=== PATIENT | female | born 1980 | race Caucasian/White ===

== ENCOUNTER 2017-11-20 22:52 | Inpatient (IN) | END 2017-11-23 18:30 | disposition home or self-care (01) | DRG 871 ==

== ENCOUNTER 2018-12-10 18:37 | Emergency (ER) | payer MEDICAID ==
[~2018-12-10] VITALS: Ht 157.5 cm; Wt 53.3 kg
[~2018-12-10 18:37] MED LIST: ACET325T40 PO; CIPR500T4 PO
[2018-12-10 19:19] VITALS: BP 111/73; PULSE 86; RESP 20; Ht 157.5 cm; Wt 53.3 kg
[2018-12-10] MEDS ORDERED: ACET-141 PO (20:08)
[2018-12-10] MEDS ORDERED: AZIT250T PO (20:08)
--- NOTE | 2018-12-10 20:15 | ERD ---
ER Documentation Chief Complaint Chief Complaint FLU SYMPTOMS X'S 2 DAYS HPI 38-year-old female no significant past medical history presents for flulike symptoms x3 days. Patient states that she has subjective fever for the past 2 days. She also has sore throat and headache. She also says she has bilateral ear pain. She denies chest pain or shortness of breath. Denies abdominal pain, nausea, vomiting. She took ibuprofen 400 mg at home with only mild relief. She denies cough. ROS All systems reviewed and are negative except as per history of present illness. Medications Home Meds Active Scripts Acetaminophen* (Acetaminophen*) 500 MG Extra Strength Tablet, 500 MG PO Q4H PRN for PAIN AND OR ELEVATED TEMP, #30 TAB Prov:BRIAN VASQUEZ DO 12/10/18 Azithromycin* (Zithromax*) 250 Mg Tablet, 250 MG PO .ZPACK DIRECTED for strep pharyngitis for 5 Days, #6 TAB TAKE 500 MG (2 TABS) THE FIRST DAY THEN 250 MG (1 TAB) DAYS 2-5 Prov:BRIAN VASQUEZ DO 12/10/18 Acetaminophen (MAPAP) 325 Mg Tablet, 650 MG PO Q6H PRN for PAIN LEVEL 1-3 OR FEVER for 10 Days, TAB OTC Prov:LAYO ANDRADE MD 11/23/17 Ciprofloxacin Hcl* (Ciprofloxacin Hcl*) 500 Mg Tablet, 500 MG PO BID@,18 for 7 Days, #1 TAB Prov:LAYO ANDRADE MD 11/23/17 Allergies Allergies: Coded Allergies: Penicillins (Verified Allergy, Intermediate, rash, 12/10/18) PMhx/Soc History of Surgery: Yes (Ceasarian section x2) Anesthesia Reaction: No Hx Neurological Disorder: No Hx Respiratory Disorders: No Hx Cardiac Disorders: No Hx Psychiatric Problems: No Hx Miscellaneous Medical Probl: No Hx Alcohol Use: No Hx Substance Use: No Hx Tobacco Use: No FmHx Family History: No coronary disease Physical Exam Vitals Vital Signs Date Temp Pulse Resp B/P (MAP) Pulse Ox O2 O2 Flow FiO2 Time Delivery Rate 12/10/18 99.7 86 20 111/73 98 19:19 (86) Physical Exam Const: No acute distress Head: Atraumatic Eyes: Normal Conjunctiva ENT: Normal External Ears, bilateral tympanic membrane intact without erythema or bulging noted, nose and Mouth examination normal, tonsils are swollen bilaterally, no Neck: Full range of motion. No meningismus. There is some lymphadenopathy noted anteriorly Resp: Clear to auscultation bilaterally, no wheezing, rales, rhonchi Cardio: Regular rate and rhythm, no murmurs Skin: No petechiae or rashes Ext: No cyanosis, or edema Neur: Awake and alert Psych: Normal Mood and Affect Procedures/MDM Medical Decision Making: Differential diagnosis includes but not limited to upper respiratory infection, pneumonia, sepsis, meningitis, influenza, strep pharyngitis. Patient appeared well on physical examination, nontoxic appearing. Lungs were clear to auscultation bilaterally. There is low suspicion for pneumonia, sepsis, meningitis. Patient met 3 out of 4 Centor criteria, fever, no cough, lymphadenopathy. Therefore she will be treated empirically with antibiotics. Patient given prescription for supportive medication(s) and azithromycin given penicillin allergy.. Patient advised to follow up with PCP in 1-2 days. Patient advised to return to ED for new or worsening symptoms. Patient stable on discharge from the ED. Disclaimer: Inadvertent spelling and grammatical errors are likely due to EHR/dictation software use and do not reflect on the overall quality of patient care. Also, please note that the electronic time recorded on this note does not necessarily reflect the actual time of the patient encounter. Departure Diagnosis: Primary Impression: Sore throat Condition: Fair Patient Instructions: Pharyngitis, Strep (Presumed) Referrals: [facility] YOU HAVE RECEIVED A MEDICAL SCREENING EXAM AND THE RESULTS INDICATE THAT YOU DO NOT HAVE A CONDITION THAT REQUIRES URGENT TREATMENT IN THE EMERGENCY DEPARTMENT. FURTHER EVALUATION AND TREATMENT OF YOUR CONDITION CAN WAIT UNTIL YOU ARE SEEN IN YOUR DOCTORS OFFICE WITHIN THE NEXT 1-2 DAYS. IT IS YOUR RESPONSIBILITY TO MAKE AN APPOINTMENT FOR FOLOW-UP CARE. IF YOU HAVE A PRIMARY DOCTOR --you should call your primary doctor and schedule an appointment IF YOU DO NOT HAVE A PRIMARY DOCTOR YOU CAN CALL OUR PHYSICIAN REFERRAL HOTLINE AT IF YOU CAN NOT AFFORD TO SEE A PHYSICIAN YOU CAN CHOSE FROM THE FOLLOWING [facility] CLINICS [facility] [address] [facility]. [facility] [address] [facility]. [facility] [address] [facility]. [facility] [address] [facility]. [facility] [address] [facility]. [facility]. [address] Additional Instructions: Llame al doctor MAANA y karla lizeth AKANKSHA PARA DENTRO DE 1-2 YOUSSEF.Dgale a la secretaria que nosotros le instruimos hacer esta akanksha.Avise o llame si lares condicin se empeora antes de la akanksha. Regresa aqui si peor o no mejor. BRIAN VASQUEZ DO Dec 10, 2018 20:15
== END 2018-12-10 20:12 | disposition home or self-care (01) ==
LOC: E/R 18:37
DX: J02.9 Acute pharyngitis, unspecified (principal)
CPT/HCPCS: 99283

== ENCOUNTER 2019-01-19 20:53 | Inpatient (IN) | payer MEDICAID ==
[~2019-01-19] VITALS: Ht 157.5 cm; Wt 56.7 kg
[~2019-01-19 20:53] MED LIST changes: +ACET-141 PO; +AZIT250T PO
[2019-01-19] MEDS ORDERED: ONDANSETRON 4 MG INJ IV STA (21:01)
[2019-01-19] MEDS ORDERED: morphine 4 MG/ML VIAL IV STA (21:01)
[2019-01-19] MEDS ORDERED: SODIUM CHLORIDE 0.9% 1L BAG IV* STA (21:01)
[2019-01-19] MEDS ORDERED: VANCOMYCIN 1 GM (PMX) 250 ML IVPB ONE (21:30)
[2019-01-19] MEDS ORDERED: LEVOFLOXACIN 750MG/D5W (PMX) 150 ML IVPB ONE (21:30)
[2019-01-19] MEDS ORDERED: ACETAMINOPHEN 500 MG TAB PO STA (23:02)
[2019-01-19] MEDS ORDERED: ACETAMINOPHEN 325 MG TAB PO PRN (23:30)
[2019-01-19] MEDS ORDERED: ONDANSETRON 4 MG INJ IV PRN (23:30)
--- NOTE | 2019-01-19 23:35 | ERD ---
ER Documentation Chief Complaint Chief Complaint RLQ PAIN X 2 DAYS, FEVER WITH CHILLS, DENIES DYSURIA HPI Is a 38-year-old female with right lower quadrant pain for 2 days with fevers and chills. She denies dysuria but does have a history of recurrent pyelonephritis. She denies nausea vomiting but does have fevers and chills. Sh e is also had pain is moderate to severe in intensity and colicky in nature. Denies any other current issues ROS All systems reviewed and are negative except as per history of present illness. Medications Home Meds Active Scripts Acetaminophen* (Acetaminophen*) 500 MG Extra Strength Tablet, 500 MG PO Q4H PRN for PAIN AND OR ELEVATED TEMP, #30 TAB Prov:BRIAN VASUQEZ DO 12/10/18 Azithromycin* (Zithromax*) 250 Mg Tablet, 250 MG PO .ZPACK DIRECTED for strep pharyngitis for 5 Days, #6 TAB TAKE 500 MG (2 TABS) THE FIRST DAY THEN 250 MG (1 TAB) DAYS 2-5 Prov:BRIAN VASQUEZ DO 12/10/18 Acetaminophen (MAPAP) 325 Mg Tablet, 650 MG PO Q6H PRN for PAIN LEVEL 1-3 OR FEVER for 10 Days, TAB OTC Prov:LAYO ANDRADE MD 11/23/17 Ciprofloxacin Hcl* (Ciprofloxacin Hcl*) 500 Mg Tablet, 500 MG PO BID@,18 for 7 Days, #1 TAB Prov:LAYO ANDRADE MD 11/23/17 Allergies Allergies: Coded Allergies: Penicillins (Verified Allergy, Intermediate, rash, 12/10/18) PMhx/Soc History of Surgery: Yes (Ceasarian section x2) Anesthesia Reaction: No Hx Neurological Disorder: No Hx Respiratory Disorders: No Hx Cardiac Disorders: No Hx Psychiatric Problems: No Hx Miscellaneous Medical Probl: No Hx Alcohol Use: No Hx Substance Use: No Hx Tobacco Use: No Smoking Status: Never smoker Physical Exam Vitals Vital Signs Date Temp Pulse Resp B/P (MAP) Pulse Ox O2 O2 Flow FiO2 Time Delivery Rate 01/19/19 104.3 23:08 01/19/19 102.8 118 24 132/68 100 20:57 (89) Physical Exam Const: No acute distress Head: Atraumatic Eyes: Normal Conjunctiva ENT: Normal External Ears, Nose and Mouth. Neck: Full range of motion. No meningismus. Resp: Clear to auscultation bilaterally Cardio: Regular rate and rhythm, no murmurs Abd: Soft, non tender, non distended. Normal bowel sounds Skin: No petechiae or rashes Back: No midline or flank tenderness Ext: No cyanosis, or edema Neur: Awake and alert Psych: Normal Mood and Affect Result Diagram: 01/19/19211001/19/192110 Results 24 hrs Laboratory Tests Test 01/19/19 21:00 01/19/19 21:11 01/19/19 21:13 01/19/19 21:36 Urine Color YELLOW Urine Clarity SLIGHTLY CLOUDY Urine pH 7.0 Urine Specific 1.021 [place] Urine Ketones NEGATIVE mg/dL Urine Nitrite POSITIVE mg/dL Urine Bilirubin NEGATIVE mg/dL Urine Urobilinogen 1+ mg/dL Urine Leukocyte 2+ Tasia/ul Esterase Urine Microscopic 5 /HPF RBC Urine Microscopic 73 /HPF WBC Urine Squamous MODERATE /HPF Epithelial Cells Urine Bacteria FEW /HPF Urine Hemoglobin NEGATIVE mg/dL Urine Glucose NEGATIVE mg/dL Urine Total Protein 1+ mg/dl White Blood Count 7.2 10^3/ul Red Blood Count 3.73 10^6/ul Hemoglobin 12.1 g/dl Hematocrit 35.8 % Mean Corpuscular 96.0 fl Volume Mean Corpuscular 32.4 pg Hemoglobin Mean Corpuscular 33.8 g/dl Hemoglobin Concent Red Cell 12.5 % Distribution Width Platelet Count 236 10^3/UL Mean Platelet 9.8 fl Volume Immature 0.100 % Granulocytes % Neutrophils % 86.5 % Lymphocytes % 8.7 % Monocytes % 4.3 % Eosinophils % 0.3 % Basophils % 0.1 % Nucleated Red Blood 0.0 /100WBC Cells % Immature 0.010 10^3/ul Granulocytes # Neutrophils # 6.3 10^3/ul Lymphocytes # 0.6 10^3/ul Monocytes # 0.3 10^3/ul Eosinophils # 0.0 10^3/ul Basophils # 0.0 10^3/ul Nucleated Red Blood 0.0 10^3/ul Cells # Prothrombin Time 12.4 Sec Prothrombin Time 1.0 Ratio INR International 0.91 Normalized Ratio Activated 30.4 Sec Partial Thromboplas t Time Sodium Level 138 mmol/L Potassium Level 3.7 mmol/L Chloride Level 102 mmol/L Carbon Dioxide 27 mmol/L Level Anion Gap 9 Blood Urea Nitrogen 10 mg/dl Creatinine 0.71 mg/dl Est Glomerular > 60 mL/min Filtrat Rate mL/min Glucose Level 112 mg/dl Calcium Level 8.9 mg/dl Total Bilirubin 0.7 mg/dl Direct Bilirubin 0.00 mg/dl Indirect Bilirubin 0.7 mg/dl Aspartate Amino 23 IU/L Transf (AST/SGOT) Alanine 29 IU/L Aminotransferase (A LT/SGPT) Alkaline 60 IU/L Phosphatase Troponin I < 0.012 ng/ml Total Protein 7.7 g/dl Albumin 4.5 g/dl Globulin 3.20 g/dl Albumin/Globulin 1.40 Ratio POC Venous Lactate 1.0 mmol/L POC Beta HCG, NEGATIVE Qualitative Current Medications Medications Dose Sig/Nora Start Time Status Last (Trade) Ordered Route PRN Stop Time Admin Dose Reason Admin Sodium 1,950 ml BOLUS OVER 2 01/19/19 DC 01/19/19 Chloride HOURS STAT 21:01 01/19/19 21:15 (NS) IV* 21:03 Morphine 4 mg ONCE STAT 01/19/19 DC 01/19/19 Sulfate IV 21:01 01/19/19 21:20 (morphine) 21:03 Ondansetron 4 mg ONCE STAT 01/19/19 DC 01/19/19 HCl (Zofran IV 21:01 01/19/19 21:20 Inj) 21:03 Vancomycin 250 ml @ ONCE ONCE 01/19/19 DC 01/19/19 HCl 125 mls/hr IVPB 21:30 01/19/19 23:08 23:29 150 ml @ ONCE ONCE 01/19/19 DC 01/19/19 Levofloxacin/ 100 mls/hr IVPB 21:30 01/19/19 21:20 Dextrose 22:59 1,000 mg ONCE STAT 01/19/19 DC 01/19/19 Acetaminophen PO 23:02 01/19/19 23:08 (Tylenol 23:03 Tab) Ondansetron 4 mg BRIDGE ORDER 01/19/19 HCl (Zofran PRN IV 23:30 Inj) NAUSEA/VOMITI 01/20/19 23:29 NG 650 mg ER BRIDGE 01/19/19 Acetaminophen PRN PO 23:30 (Tylenol .MILD PAIN 01/20/19 23:29 Tab) 1-3 OR TEMP Procedures/MDM EKG: Rate/Rhythm: [Normal Sinus Rhythm] QRS, ST, T-waves: [No changes consistent w/ acute ischemia] Impression: [No evidence of ischemia or arrhythmia] Chest X-ray 1V Interpreted by me: Soft Tissue: No acute abnormalities Bones: No acute abnormalities Mediastinum/Cardiac Silhouette/Lungs: [No acute abnormalities] Medical decision makin-year-old female with pyelonephritis. Patient given her high fevers and comorbidities and recurrence, I feel the patient is to be admitted. Started on broad-spectrum antibiotics pending culture results. Hospitalist Dr. Olivares made aware. Admitted to medical surgical floor Departure Diagnosis: Primary Impression: Pyelonephritis Condition: Serious ABEL FAIRCHILD Jan 19, 2019 23:35
[2019-01-20] VITALS: BP 97/54; PULSE 109; RESP 20
[2019-01-20] MEDS ORDERED: ALBUTEROL/IPRATROPIUM (NEB) 3 ML AMP HHN PRN
[2019-01-20] MEDS ORDERED: NITROGLYCERIN (SL) 0.4 MG TAB SL PRN
[2019-01-20] MEDS ORDERED: HYDROCODONE/APAP (5/325) TAB PO PRN
[2019-01-20] MEDS ORDERED: ACETAMINOPHEN 325 MG TAB PO PRN
[2019-01-20] MEDS ORDERED: NACL 0.9% 3 ML SYG IV SCH
[2019-01-20] MEDS ORDERED: morphine 2 MG INJ IV PRN
[2019-01-20] MEDS ORDERED: LORAZEPAM 2 MG INJ IV PRN
[2019-01-20] MEDS ORDERED: ONDANSETRON 4 MG INJ IV PRN
[2019-01-20] MEDS ORDERED: DOCUSATE SODIUM 100 MG CAP PO PRN
[2019-01-20] MEDS ORDERED: MAGNESIUM HYDROXIDE 30ML CUP PO PRN
[2019-01-20] MEDS ORDERED: hydrALAzine 20 MG INJ IV PRN
[2019-01-20 00:11] VITALS: Ht 157.5 cm; Wt 56.7 kg
[2019-01-20] MEDS ORDERED: DIPHENHYDRAMINE 50 MG INJ IV PRN (00:30)
[2019-01-20] MEDS: MEROPENEM 1 GM/50ML(PMX) 50 ML IVPB SCH ×4 (01:20→21:08)
[2019-01-20] MEDS: SOD CHLORIDE 0.9% 1,000 ML IV SCH ×3 (01:21→12:07)
[2019-01-20 02:00] VITALS: BP 90/57; PULSE 110; RESP 18
--- NOTE | 2019-01-20 02:52 | HP ---
Date/Time of Note Date/Time of Note DATE: 01/20/19 TIME: 02:49 Assessment/Plan VTE Prophylaxis Risk score (from Ns)>0 risk: 2 SCD applied (from [facility]): No SCD contraindicated: other Pharmacological prophylaxis: heparin Lines/Catheters IV Catheter Type (from [facility]): Saline Lock Assessment/Plan Hospital Course Assessment and plan: 38-year female with past medical history of in the past and pyelonephritis in the past who presents with right lower quadrant pain for 2 days signs of pyelonephritis. 1. Pyelonephritis: Again based on her UA results, fevers, and her clinical sy mptoms. -Continue patient broad-spectrum antibiotics, follow final culture results -IV fluids and Tylenol PRN pain fevers, opiate medications PRN for pain -Check TSH, A1c, lipid panel -We will obtain ID consult as well 2. History : Monitor for now 3. DVT prophylaxis: Heparin subcu Result Diagram: 01/19/19211001/19/192110 Results 24hrs Laboratory Tests Test 01/19/19 21:00 01/19/19 21:11 01/19/19 21:13 01/19/19 21:36 Urine Color YELLOW Urine Clarity SLIGHTLY CLOUDY A Urine pH 7.0 Urine Specific 1.021 [place] Urine Ketones NEGATIVE Urine Nitrite POSITIVE A Urine Bilirubin NEGATIVE Urine Urobilinogen 1+ H Urine Leukocyte 2+ H Esterase Urine Microscopic 5 RBC Urine Microscopic 73 H WBC Urine Squamous MODERATE Epithelial Cells Urine Bacteria FEW A Urine Hemoglobin NEGATIVE Urine Glucose NEGATIVE Urine Total 1+ H Protein White Blood Count 7.2 Red Blood Count 3.73 #L Hemoglobin 12.1 # Hematocrit 35.8 #L Mean Corpuscular 96.0 Volume Mean Corpuscular 32.4 Hemoglobin Mean Corpuscular 33.8 Hemoglobin Concent Red Cell 12.5 Distribution Width Platelet Count 236 # Mean Platelet 9.8 Volume Immature 0.100 Granulocytes % Neutrophils % 86.5 H Lymphocytes % 8.7 L Monocytes % 4.3 Eosinophils % 0.3 Basophils % 0.1 Nucleated Red 0.0 Blood Cells % Immature 0.010 Granulocytes # Neutrophils # 6.3 Lymphocytes # 0.6 L Monocytes # 0.3 Eosinophils # 0.0 Basophils # 0.0 Nucleated Red 0.0 Blood Cells # Prothrombin Time 12.4 # Prothrombin Time 1.0 Ratio INR International 0.91 Normalized Ratio Activated 30.[address] Time Sodium Level 138 Potassium Level 3.7 Chloride Level 102 Carbon Dioxide 27 Level Anion Gap 9 Blood Urea 10 Nitrogen Creatinine 0.71 Est Glomerular > 60 Filtrat Rate mL/min Glucose Level 112 Calcium Level 8.9 Total Bilirubin 0.7 Direct Bilirubin 0.00 Indirect Bilirubin 0.7 Aspartate Amino 23 Transf (AST/SGOT) Alanine 29 Aminotransferase ( ALT/SGPT) Alkaline 60 Phosphatase Troponin I < 0.012 Total Protein 7.7 Albumin 4.5 Globulin 3.20 Albumin/Globulin 1.40 Ratio Free Thyroxine 0.81 POC Venous Lactate 1.0 POC Beta HCG, NEGATIVE Qualitative Test 01/19/19 23:30 Lactic Acid Level 2.0 HPI/ROS Admit Date/Time Admit Date/Time Jan 19, 2019 at 23:17 Hx of Present Illness 38-year female with past medical history of in the past and pyelo nephritis in the past who presents with right lower quadrant pain for 2 days. Patient also had some subjective fevers and chills at home. No upper or lower GI bleeding, she has some nausea symptoms but no vomiting symptoms. No chest pain shortness of breath. When she came in today she was found temperature 104, UA was positive for signs of UTI, likely pyelonephritis. PMH/Family/Social Past Medical History Medications Current Medications IV Flush (NS 3 ml) 3 ml PER PROTOCOL IV ; Start 01/20/19 at 00:00 Ondansetron HCl (Zofran Inj) 4 mg Q6H PRN IV NAUSEA/VOMITING; Start 01/20/19 at 00:00 Acetaminophen (Tylenol Tab) 650 mg Q6H PRN PO .PAIN 1-3 OR TEMP; Start 01/20/19 at 00:00 Acetaminophen/ Hydrocodone Bitart ([place] (5/325)) 1 tab Q6H PRN PO .MOD PAIN 4- 6; Start 01/20/19 at 00:00 Morphine Sulfate (morphine) 2 mg Q4H PRN IV .SEVERE PAIN 7-10; Start 01/20/19 at 00:00 Docusate Sodium (Colace) 100 mg Q12H PRN PO .CONSTIPATION; Start 01/20/19 at 00:00 Magnesium Hydroxide (Milk Of Mag) 30 ml DAILY PRN PO .CONSTIPATION; Start 01/20/19 at 00:00 Heparin Sodium (Porcine) (Heparin (5000 Units/1ml)) 5,000 unit Q12 SC ; Start 01/20/19 at 09:00 Lorazepam (Ativan) 0.5 mg Q6H PRN IV ANXIETY; Start 01/20/19 at 00:00 Sodium Chloride 1,000 ml @ 100 mls/hr Q10H IV Last administered on 01/20/19at 01:21; Admin Dose 100 MLS/HR; Start 01/19/19 at 23:33 Albuterol/ Ipratropium (Duoneb) 3 ml Q4H RESP THERAPY PRN HHN SHORTNESS OF BREATH; Start 01/20/19 at 00:00 Hydralazine HCl (Apresoline) 10 mg Q6H PRN IV ELEVATED BLOOD PRESSURE; Start 01/20/19 at 00:00 Nitroglycerin (Nitroglycerin (Sl Tab) 0.4 Mg) 1 tab Q5M PRN SL ANGINA; Start 01/20/19 at 00:00 Meropenem/Sodium Chloride 50 ml @ 100 mls/hr Q8 IVPB Last administered on 01/20/19at 01:20; Admin Dose 100 MLS/HR; Start 01/20/19 at 00:22 Diphenhydramine HCl (Benadryl) 25 mg Q6H PRN IV ALLERGIC REACTION; Start 01/20/19 at 00:30 Coded Allergies: Penicillins (Verified Allergy, Severe, facial swelling, 01/20/19) Past Surgical History Past Surgical Hx: other () Family History Significant Family History: no pertinent family hx Social History Alcohol Use: none Smoking Status: Never smoker Drug Use: none Exam/Review of Systems Vital Signs Vitals Vital Signs Date Temp Pulse Resp B/P (MAP) Pulse Ox O2 O2 Flow FiO2 Time Delivery Rate 01/20/19 100.9 109 20 97/54 (68) 96 Room Air 00:00 Exam Exam Gen: Lying in bed, no acute distress Head: Atraumatic. Eyes: Normal Conjunctiva. ENT: Normal External Ears, Nose and Mouth. Neck: Full range of motion. No meningismus. Resp: Clear to auscultation bilaterally. Cardio: Regular rate and rhythm. Abd: Soft, nondistended, normal bowel sounds, non tender. Ext: No lower extremity edema bilaterally Neuro: No focal deficits RAHI,ELLA S. Jan 20, 2019 02:52
[2019-01-20 08:00] VITALS: BP 92/52; PULSE 74; RESP 17
[2019-01-20] MEDS ORDERED: HEPARIN 5,000 UNIT/1 ML VIAL SC SCH (09:00)
--- NOTE | 2019-01-20 11:07 | PN ---
Date/Time of Note Date/Time of Note DATE: 01/20/19 TIME: 11:07 Assessment/Plan VTE Prophylaxis Risk score (from Ns)>0 risk: 2 SCD applied (from Ns): Yes Pharmacological prophylaxis: NA/contraindicated Pharm contraindication: low risk/ambulating Lines/Catheters IV C[facility]ter Type (from [facility]): Saline Lock Assessment/Plan Hospital Course SUBJECTIVE: Patient had fevers this morning. Currently afebrile. Denies dysuria, nausea, vomiting, dysuria, hematuria, abdominal pain or other disc omfort. OBJECTIVE: Vital signs-see below PHYSICAL EXAM: Constitutional: Adequately built,not in acute distress. HEENT: Head atraumatic and normocephalic. Eyes: Extraocular muscles intact. Anicteric sclerae. Pupils equal bilaterally, reactive to light. NECK: Supple without lymph node. CHEST: Clear and good breath sounds equally. No wheezing. No rhonchi. HEART: S1, S2. Regular rate and rhythm. ABDOMEN: Soft/non tender with no rebound tenderness. Bowel sounds were present. EXTREMITIES: No cyanosis, clubbing or edema. NEUROLOGIC: Alert and oriented x3. No focal deficit. No sensory deficit. PSYCHOSOCIAL: No signs of depression. INTEGUMENTARY: No open wounds. ASSESSMENT AND PLAN:38-year female with past medical history of in the past and pyelonephritis in the past who presents with right flank pain/fevers x 2 days,noted to have sepsis/pyelonephritis. Sepsis, poa -source:UTI -CONT ABX -F/U CULTURES UTI w/Likely Pyelonephritis -on appropriate abx which we will continue -f/u urine cultures DVT ppx:SCDs Dispo:f/u cultures. If no fevers and clincially stable, DC planning in AM w/possible oral transition of abx Patient was seen in collaboration w/ Result Diagram: 01/20/19 03401/20/19 0347 Results 24hrs Laboratory Tests Test 01/19/19 21:00 01/19/19 21:11 01/19/19 21:13 01/19/19 21:36 Urine Color YELLOW Urine Clarity SLIGHTLY CLOUDY A Urine pH 7.0 Urine Specific 1.021 [place] Urine Ketones NEGATIVE Urine Nitrite POSITIVE A Urine Bilirubin NEGATIVE Urine 1+ H Urobilinogen Urine Leukocyte 2+ H Esterase Urine Microscopic 5 RBC Urine Microscopic 73 H WBC Urine Squamous MODERATE Epithelial Cells Urine Bacteria FEW A Urine Hemoglobin NEGATIVE Urine Glucose NEGATIVE Urine Total 1+ H Protein White Blood Count 7.2 Red Blood Count 3.73 #L Hemoglobin 12.1 # Hematocrit 35.8 #L Mean Corpuscular 96.0 Volume Mean Corpuscular 32.4 Hemoglobin Mean Corpuscular 33.8 Hemoglobin Concen t Red Cell 12.5 Distribution Width Platelet Count 236 # Mean Platelet 9.8 Volume Immature 0.100 Granulocytes % Neutrophils % 86.5 H Lymphocytes % 8.7 L Monocytes % 4.3 Eosinophils % 0.3 Basophils % 0.1 Nucleated Red 0.0 Blood Cells % Immature 0.010 Granulocytes # Neutrophils # 6.3 Lymphocytes # 0.6 L Monocytes # 0.3 Eosinophils # 0.0 Basophils # 0.0 Nucleated Red 0.0 Blood Cells # Prothrombin Time 12.4 # Prothrombin Time 1.0 Ratio INR International 0.91 Normalized Ratio Activated 30.4 Partial Thrombopl ast Time Sodium Level 138 Potassium Level 3.7 Chloride Level 102 Carbon Dioxide 27 Level Anion Gap 9 Blood Urea 10 Nitrogen Creatinine 0.71 Est Glomerular > 60 Filtrat Rate mL/min Glucose Level 112 Calcium Level 8.9 Total Bilirubin 0.7 Direct Bilirubin 0.00 Indirect 0.7 Bilirubin Aspartate Amino 23 Transf (AST/SGOT) Alanine 29 Aminotransferase (ALT/SGPT) Alkaline 60 Phosphatase Troponin I < 0.012 Total Protein 7.7 Albumin 4.5 Globulin 3.20 Albumin/Globulin 1.40 Ratio Free Thyroxine 0.81 POC Venous 1.0 Lactate POC Beta HCG, NEGATIVE Qualitative Test 01/19/19 23:30 01/20/19 03:47 01/20/19 07:28 Lactic Acid Level 2.0 0.7 0.7 White Blood Count 7.2 Red Blood Count 3.18 L Hemoglobin 10.4 L Hematocrit 30.5 L Mean Corpuscular 95.9 Volume Mean Corpuscular 32.7 Hemoglobin Mean Corpuscular 34.1 Hemoglobin Concen t Red Cell 12.6 Distribution Width Platelet Count 179 # Mean Platelet 10.0 Volume Immature 0.600 H Granulocytes % Neutrophils % 85.4 H Lymphocytes % 6.2 L Monocytes % 7.5 Eosinophils % 0.0 Basophils % 0.3 Nucleated Red 0.0 Blood Cells % Immature 0.040 H Granulocytes # Neutrophils # 6.2 Lymphocytes # 0.5 L Monocytes # 0.5 Eosinophils # 0.0 Basophils # 0.0 Nucleated Red 0.0 Blood Cells # Sodium Level 138 Potassium Level 3.9 Chloride Level 109 Carbon Dioxide 24 Level Anion Gap 5 Blood Urea 8 Nitrogen Creatinine 0.60 Est Glomerular > 60 Filtrat Rate mL/min Glucose Level 129 Hemoglobin A1c 5.0 Calcium Level 7.7 L Phosphorus Level 3.3 Magnesium Level 1.8 Triglycerides 97 Level Cholesterol Level 145 LDL Cholesterol, 81 Calculated HDL Cholesterol 45 Cholesterol/HDL 3.2 Ratio Thyroid 0.555 Stimulating Hormone (TSH) Exam/Review of Systems Exam Vitals Vital Signs Date Temp Pulse Resp B/P (MAP) Pulse Ox O2 O2 Flow FiO2 Time Delivery Rate 01/20/19 97.8 74 17 92/52 (65) 99 Room Air 08:00 Intake and Output 01/19/19 01/19/19 01/20/19 1515:00 23:00 07:00 IntakeIntake Total 600 ml BalanceBalance 600 ml Results Results 24hrs Laboratory Tests Test 01/19/19 21:00 01/19/19 21:11 01/19/19 21:13 01/19/19 21:36 Urine Color YELLOW Urine Clarity SLIGHTLY CLOUDY A Urine pH 7.0 Urine Specific 1.021 [place] Urine Ketones NEGATIVE Urine Nitrite POSITIVE A Urine Bilirubin NEGATIVE Urine 1+ H Urobilinogen Urine Leukocyte 2+ H Esterase Urine Microscopic 5 RBC Urine Microscopic 73 H WBC Urine Squamous MODERATE Epithelial Cells Urine Bacteria FEW A Urine Hemoglobin NEGATIVE Urine Glucose NEGATIVE Urine Total 1+ H Protein White Blood Count 7.2 Red Blood Count 3.73 #L Hemoglobin 12.1 # Hematocrit 35.8 #L Mean Corpuscular 96.0 Volume Mean Corpuscular 32.4 Hemoglobin Mean Corpuscular 33.8 Hemoglobin Concen t Red Cell 12.5 Distribution Width Platelet Count 236 # Mean Platelet 9.8 Volume Immature 0.100 Granulocytes % Neutrophils % 86.5 H Lymphocytes % 8.7 L Monocytes % 4.3 Eosinophils % 0.3 Basophils % 0.1 Nucleated Red 0.0 Blood Cells % Immature 0.010 Granulocytes # Neutrophils # 6.3 Lymphocytes # 0.6 L Monocytes # 0.3 Eosinophils # 0.0 Basophils # 0.0 Nucleated Red 0.0 Blood Cells # Prothrombin Time 12.4 # Prothrombin Time 1.0 Ratio INR International 0.91 Normalized Ratio Activated 30.4 Partial Thrombopl ast Time Sodium Level 138 Potassium Level 3.7 Chloride Level 102 Carbon Dioxide 27 Level Anion Gap 9 Blood Urea 10 Nitrogen Creatinine 0.71 Est Glomerular > 60 Filtrat Rate mL/min Glucose Level 112 Calcium Level 8.9 Total Bilirubin 0.7 Direct Bilirubin 0.00 Indirect 0.7 Bilirubin Aspartate Amino 23 Transf (AST/SGOT) Alanine 29 Aminotransferase (ALT/SGPT) Alkaline 60 Phosphatase Troponin I < 0.012 Total Protein 7.7 Albumin 4.5 Globulin 3.20 Albumin/Globulin 1.40 Ratio Free Thyroxine 0.81 POC Venous 1.0 Lactate POC Beta HCG, NEGATIVE Qualitative Test 01/19/19 23:30 01/20/19 03:47 01/20/19 07:28 Lactic Acid Level 2.0 0.7 0.7 White Blood Count 7.2 Red Blood Count 3.18 L Hemoglobin 10.4 L Hematocrit 30.5 L Mean Corpuscular 95.9 Volume Mean Corpuscular 32.7 Hemoglobin Mean Corpuscular 34.1 Hemoglobin Concen t Red Cell 12.6 Distribution Width Platelet Count 179 # Mean Platelet 10.0 Volume Immature 0.600 H Granulocytes % Neutrophils % 85.4 H Lymphocytes % 6.2 L Monocytes % 7.5 Eosinophils % 0.0 Basophils % 0.3 Nucleated Red 0.0 Blood Cells % Immature 0.040 H Granulocytes # Neutrophils # 6.2 Lymphocytes # 0.5 L Monocytes # 0.5 Eosinophils # 0.0 Basophils # 0.0 Nucleated Red 0.0 Blood Cells # Sodium Level 138 Potassium Level 3.9 Chloride Level 109 Carbon Dioxide 24 Level Anion Gap 5 Blood Urea 8 Nitrogen Creatinine 0.60 Est Glomerular > 60 Filtrat Rate mL/min Glucose Level 129 Hemoglobin A1c 5.0 Calcium Level 7.7 L Phosphorus Level 3.3 Magnesium Level 1.8 Triglycerides 97 Level Cholesterol Level 145 LDL Cholesterol, 81 Calculated HDL Cholesterol 45 Cholesterol/HDL 3.2 Ratio Thyroid 0.555 Stimulating Hormone (TSH) Medications Medication Current Medications IV Flush (NS 3 ml) 3 ml PER PROTOCOL IV ; Start 01/20/19 at 00:00 Ondansetron HCl (Zofran Inj) 4 mg Q6H PRN IV NAUSEA/VOMITING Last administered on 01/20/19at 08:34; Admin Dose 4 MG; Start 01/20/19 at 00:00 Acetaminophen (Tylenol Tab) 650 mg Q6H PRN PO .PAIN 1-3 OR TEMP; Start 01/20/19 at 00:00 Acetaminophen/ Hydrocodone Bitart ([place] (5/325)) 1 tab Q6H PRN PO .MOD PAIN 4- 6; Start 01/20/19 at 00:00 Morphine Sulfate (morphine) 2 mg Q4H PRN IV .SEVERE PAIN 7-10; Start 01/20/19 at 00:00 Docusate Sodium (Colace) 100 mg Q12H PRN PO .CONSTIPATION Last administered on 01/20/19at 08:34; Admin Dose 100 MG; Start 01/20/19 at 00:00 Magnesium Hydroxide (Milk Of Mag) 30 ml DAILY PRN PO .CONSTIPATION; Start 01/20/19 at 00:00 Sodium Chloride 1,000 ml @ 100 mls/hr Q10H IV Last administered on 01/20/19at 01:21; Admin Dose 100 MLS/HR; Start 01/19/19 at 23:33 Albuterol/ Ipratropium (Duoneb) 3 ml Q4H RESP THERAPY PRN HHN SHORTNESS OF BREATH; Start 01/20/19 at 00:00 Meropenem/Sodium Chloride 50 ml @ 100 mls/hr Q8 IVPB Last administered on 01/20/19at 05:44; Admin Dose 100 MLS/HR; Start 01/20/19 at 00:22 Diphenhydramine HCl (Benadryl) 25 mg Q6H PRN IV ALLERGIC REACTION; Start 01/20/19 at 00:30 KERRI IQBAL NP Jan 20, 2019 11:07
[2019-01-20 14:00] VITALS: BP 92/59; PULSE 60; RESP 18
[2019-01-20] MEDS ORDERED: MEROPENEM 1 GM/50ML(PMX) 50 ML IVPB SCH (14:30)
--- NOTE | 2019-01-20 16:02 | CONS ---
DATE OF ADMISSION: 01/19/2019 DATE OF CONSULTATION: 01/20/2019 TYPE OF CONSULTATION: Infectious Disease. REASON FOR CONSULTATION: Antibiotic management. HISTORY OF PRESENT ILLNESS: Raiza Lino is a 38-year-old female, who comes to the emergency room with right lower quadrant pain x2 days, associated with fever and chills. She denies dysuria, but has a history of recurrent pyelonephritis. She does not have nausea and vomiting. She has pain of moderate to severe severity, which is colicky in nature. PAST MEDICAL HISTORY: OPERATIONS: x2. FAMILY HISTORY: Noncontributory. SOCIAL HISTORY: She does not smoke, drink or abuse drugs. ALLERGIES: NONE TO PENICILLIN, SULFA OR FOODS. MEDICATIONS: Per chart. REVIEW OF SYSTEMS: As per HPI. PHYSICAL EXAMINATION: GENERAL: The patient is a well-developed, well-nourished female, alert, responsive, in no acute dist ress. VITAL SIGNS: Stable. T-max is 104.3, pulse of 118, respirations 24, blood pressure 132/68. SKIN: Without generalized rash. HEENT: Within normal limits. NECK: Supple. LYMPH NODES: None palpable. CHEST: Decreased breath sounds at the bases. HEART: Without murmur or gallop. ABDOMEN: Soft, nontender, without organosplenomegaly or masses. EXTREMITIES: Without cyanosis, clubbing, or edema. RECTAL AND GENITAL: Deferred. NEUROLOGIC: No focal neurological abnormality. ANCILLARY LABORATORY DATA: White count 7.2, H and H 12.1 and 35.8, platelet count 236,000. BUN and creatinine 10/0.71 and glucose is 112. She has 87% neutrophils. IMPRESSION AND PLAN: The patient was started on vancomycin and Levaquin. My feeling is that the pat ient has pyelonephritis. She was started as noted, on vancomycin and Levaquin. A urine culture is g rowing gram-negative rods. Urinalysis shows positive for nitrite, 2+ leukocyte esterase, 73 white ce lls per high powered field. A chest x-ray is negative for acute cardiopulmonary disease and her CT s can of the abdomen and pelvis shows trace pelvic free fluid. Left lower lobe 5 mm subpleural nodule, otherwise no acute abnormality. No hydroureter or hydronephrosis. The patient felt to have pyelone phritis. She is growing gram-negative rods in her urine. I am going to switch her from Levaquin to meropenem until we get the results back. I will dictate my findings to the hospitalist. Dictated By: BRENT GIRON MD, JD/DAWIT Conf#: [id number] DID#: [id number] CC: ELLA LONDONO;*EndCC*
[2019-01-20 20:48] VITALS: BP 99/58; PULSE 89; RESP 16
[2019-01-21 02:00] VITALS: BP 107/66; PULSE 89; RESP 17
[2019-01-21] MEDS: SOD CHLORIDE 0.9% 1,000 ML IV SCH (02:49)
[2019-01-21] MEDS: MEROPENEM 1 GM/50ML(PMX) 50 ML IVPB SCH ×2 (05:52→13:26)
[2019-01-21 07:30] VITALS: BP 108/61; PULSE 79; RESP 16
--- NOTE | 2019-01-21 11:06 | PDOCDIS ---
Discharge Instructions CONDITION [id number] Patient Condition: [id number] Stable HOME CARE INSTRUCTIONS: Ashley Diet Instructions: [id number] Regular FOLLOW UP/APPOINTMENTS Follow-up Plan Follow-up with primary care physician in 1 week. You have a urinary tract infection. You will need to drink plenty of fluids. Continue taking her antibiotics on time. KERRI IQBAL NP Jan 21, 2019 11:06
[2019-01-21] MEDS ORDERED: CIPR500T4 PO (11:07)
--- NOTE | 2019-01-21 11:14 | DS ---
Date/Time of Note Date/Time of Note DATE: 01/21/19 TIME: 11:13 Discharge Summary Admission/Discharge Info Admit Date/Time Jan 19, 2019 at 23:17 Discharge Date/Time Discharge Diagnosis Status post sepsis with UTI E-Coli UTI w/Likely Pyelonephritis Patient Condition: Stable Hospital Course 38-year female with past medical history of in the past and pyelonephritis in the past who presents with right flank pain/fevers x 2 days,noted to have sepsis/pyelonephritis. Patient was continued on IV meropenem. Urine culture showed E. coli sensitive to fluoroquinolone. Patient blood culture negative after 24 hours. She continued to have a temperature ranging in 99, although patient reported feeling better and does not want to stay in the hospital for another 24 hours. She requested an early discharge. At this time, labs and vital signs stable. White count normal. Patient will be discharged on 10 days on Cipro with primary care follow-up. Approximately 60 m spent on coordinating the discharge on this patient. Patient was seen in collaboration with Dr. Heránndez. Home Meds Active Scripts Ciprofloxacin Hcl* (Ciprofloxacin Hcl*) 500 Mg Tablet, 500 MG PO BID@ for 10 Days, #14 TAB Prov:KERRI IQBAL NP 01/21/19 Acetaminophen* (Acetaminophen*) 500 MG Extra Strength Tablet, 500 MG PO Q4H PRN for PAIN AND OR ELEVATED TEMP, #30 TAB Prov:BRIAN VASQUEZ DO 12/10/18 Azithromycin* (Zithromax*) 250 Mg Tablet, 250 MG PO .ZPACK DIRECTED for strep pharyngitis for 5 Days, #6 TAB TAKE 500 MG (2 TABS) THE FIRST DAY THEN 250 MG (1 TAB) DAYS 2-5 Prov:BRIAN VASQUEZ DO 12/10/18 Acetaminophen (MAPAP) 325 Mg Tablet, 650 MG PO Q6H PRN for PAIN LEVEL 1-3 OR FEV ER for 10 Days, TAB OTC Prov:LAYO ANDRADE MD 11/23/17 Follow-up Plan Follow-up with primary care physician in 1 week. You have a urinary tract infection. You will need to drink plenty of fluids. Continue taking her antibiotics on time. Primary Care Provider Care Physician No Primary Pending Labs Laboratory Tests Test 01/20/19 11:36 01/20/19 15:09 01/20/19 19:33 01/21/19 05:41 Lactic Acid 0.6 0.8 1.0 Level mmol/L (0.5-2.0 mmol/L (0.5-2. mmol/L (0.5-2. ) 0) 0) White Blood 5.9 Count 10^3/ul (4.8-1 0.8) Red Blood 3.30 Count 10^6/ul (4.20- 5.40) Hemoglobin 10.8 g/dl (12.0-16. 0) Hematocrit 31.3 % (37.0-47.0) Mean 94.8 Corpuscular fl (82.0-101.0 Volume ) Mean 32.7 Corpuscular pg (29.0-33.0) Hemoglobin Mean 34.5 Corpuscular g/dl (32.0-37. Hemoglobin Conc 0) ent Red Cell 12.4 Distribution % (11.5-14.5) Width Platelet Count 184 10^3/UL (140-4 15) Mean Platelet 10.0 Volume fl (7.4-10.4) Immature 0.200 Granulocytes % % (0.001-0.429 ) Neutrophils % 78.2 % (39.0-77.0) Lymphocytes % 13.8 % (15.0-51.0) Monocytes % 7.4 % (0.0-11.0) Eosinophils % 0.2 % (0.0-7.0) Basophils % 0.2 % (0.0-2.0) Nucleated Red 0.0 Blood Cells % /100WBC (0.0-0 .0) Immature 0.010 Granulocytes # 10^3/ul (0.0-0 .031) Neutrophils # 4.6 10^3/ul (1.6-7 .5) Lymphocytes # 0.8 10^3/ul (0.8-2 .9) Monocytes # 0.4 10^3/ul (0.3-0 .9) Eosinophils # 0.0 10^3/ul (0.0-0 .5) Basophils # 0.0 10^3/ul (0.0-0 .1) Nucleated Red 0.0 Blood Cells # 10^3/ul (0.0-0 .0) Sodium Level 138 mmol/L (135-14 4) Potassium 3.6 Level mmol/L (3.5-5. 1) Chloride Level 108 mmol/L (97-110 ) Carbon Dioxide 24 Level mmol/L (21-31) Anion Gap 6 (5-13) Blood Urea 3 mg/dl (7-20) Nitrogen Creatinine 0.52 mg/dl (0.44-1. 00) Est Glomerular > 60 Filtrat mL/min (>60) Rate mL/min Glucose Level 110 mg/dl (70-220) Calcium Level 8.1 mg/dl (8.4-10. 2) KERRI IQBAL V. SPECIALTIES OPERATOR Jan 21, 2019 11:14
[2019-01-21 14:13] VITALS: BP 91/58; PULSE 81; RESP 16
--- NOTE | 2019-01-21 14:22 | CONS ---
Assessment/Plan Assessment/Plan Hospital Course (Demo Recall) No acute changes patient is alert feels good no dysuria no hematuria no burning no flank pain WBC 5.9 neutrophils 78.2 BUN 30 creatinine 0.52. Blood culture since admission negative urine culture grew E. coli Allergies penicillin Antimicrobials: Meropenem Physical examination well-developed well-nourished young woman who is alert in no distress. Head atraumatic normocephalic neck is supple chest rise symmetrical breath sounds clear heart S1-S2 abdomen soft bowel sounds present extremities no cyanosis Assessment: E. coli UTI Plan: Patient is doing much better, okay discharge on oral levofloxacin or Cipro to complete 7-10 days Consultation Date/Type/Reason Admit Date/Time Jan 19, 2019 at 23:17 Initial Consult Date Type of Consult id Date/Time of Note DATE: 01/21/19 TIME: 14:21 Exam/Review of Systems Exam Vitals Vital Signs Date Temp Pulse Resp B/P (MAP) Pulse Ox O2 O2 Flow FiO2 Time Delivery Rate 01/21/19 99.4 79 16 108/61 99 Room Air 07:30 (77) Intake and Output 01/20/19 01/20/19 01/21/19 1515:00 23:00 07:00 IntakeIntake Total 550 ml 790 ml 750 ml OutputOutput Total 250 ml BalanceBalance 550 ml 540 ml 750 ml Results Result Diagram: 01/21/19 0541 01/21/19 0541 Results 24hrs Laboratory Tests Test 01/20/19 15:09 01/20/19 19:33 01/21/19 05:41 Lactic Acid Level 0.8 1.0 White Blood Count 5.9 Red Blood Count 3.30 L Hemoglobin 10.8 L Hematocrit 31.3 L Mean Corpuscular Volume 94.8 Mean Corpuscular Hemoglobin 32.7 Mean Corpuscular Hemoglobin Concent 34.5 Red Cell Distribution Width 12.4 Platelet Count 184 Mean Platelet Volume 10.0 Immature Granulocytes % 0.200 Neutrophils % 78.2 H Lymphocytes % 13.8 L Monocytes % 7.4 Eosinophils % 0.2 Basophils % 0.2 Nucleated Red Blood Cells % 0.0 Immature Granulocytes # 0.010 Neutrophils # 4.6 Lymphocytes # 0.8 Monocytes # 0.4 Eosinophils # 0.0 Basophils # 0.0 Nucleated Red Blood Cells # 0.0 Sodium Level 138 Potassium Level 3.6 Chloride Level 108 Carbon Dioxide Level 24 Anion Gap 6 Blood Urea Nitrogen 3 L Creatinine 0.52 Est Glomerular Filtrat Rate mL/min > 60 Glucose Level 110 Calcium Level 8.1 L Medications Medication Current Medications IV Flush (NS 3 ml) 3 ml PER PROTOCOL IV ; Start 01/20/19 at 00:00 Ondansetron HCl (Zofran Inj) 4 mg Q6H PRN IV NAUSEA/VOMITING Last administered on 01/20/19 08:34; Admin Dose 4 MG; Start 01/20/19 at 00:00 Acetaminophen (Tylenol Tab) 650 mg Q6H PRN PO .PAIN 1-3 OR TEMP Last administered on 01/20/19 19:00; Admin Dose 650 MG; Start 01/20/19 at 00:00 Acetaminophen/ Hydrocodone Bitart ([place] (5/325)) 1 tab Q6H PRN PO .MOD PAIN 4- 6; Start 01/20/19 at 00:00 Morphine Sulfate (morphine) 2 mg Q4H PRN IV .SEVERE PAIN 7-10; Start 01/20/19 at 00:00 Docusate Sodium (Colace) 100 mg Q12H PRN PO .CONSTIPATION Last administered on 01/20/19 08:34; Admin Dose 100 MG; Start 01/20/19 at 00:00 Magnesium Hydroxide (Milk Of Mag) 30 ml DAILY PRN PO .CONSTIPATION; Start 01/20/19 at 00:00 Sodium Chloride 1,000 ml @ 100 mls/hr Q10H IV Last administered on 01/21/19 02:49; Admin Dose 100 MLS/HR; Start 01/19/19 at 23:33 Albuterol/ Ipratropium (Duoneb) 3 ml Q4H RESP THERAPY PRN HHN SHORTNESS OF BREATH; Start 01/20/19 at 00:00 Meropenem/Sodium Chloride 50 ml @ 100 mls/hr Q8 IVPB Last administered on 01/21/19 13:26; Admin Dose 100 MLS/HR; Start 01/20/19 at 00:22 Diphenhydramine HCl (Benadryl) 25 mg Q6H PRN IV ALLERGIC REACTION; Start 01/20/19 at 00:30 RENÉ BELLE NP Jan 21, 2019 14:22
== END 2019-01-21 15:21 | disposition home or self-care (01) | DRG 872 ==
LOC: E/R 20:53 → PP2 23:17
PROVIDERS: ADMIT Hospitalist; ATTEND Hospitalist
DX: A41.51 Sepsis due to Escherichia coli [E. coli] (principal); N12 Tubulo-interstitial nephritis, not specified as acute or chronic
CPT/HCPCS: 36415; 71045; 74176; 80048; 80053; 80061; 81001; 81025; 83036; 83605; 83735; 84100; 84439; 84443; 84484; 85025; 85610; 85730; 87086; 93005; 96374; 96375; J1644; J1956; J2185; J2270; J2405; J3370; J7030